=== PATIENT | female | born 1980 | race Caucasian/White ===

== ENCOUNTER 2016-12-19 18:49 | Emergency (ER) | payer MEDICAID ==
[~2016-12-19] VITALS: Ht 147.3 cm; Wt 94.8 kg
[2016-12-19 18:55] VITALS: BP_SYST 110
[2016-12-19 21:34] LABS: BILIRUBIN,URINE NEGATIVE (NEGATIVE); BLOOD, URINE NEGATIVE (NEGATIVE); CLARITY/URINE HAZY (CLEAR); COLOR,URINE YELLOW (YELLOW); GLUCOSE,URINE NEGATIVE (NEGATIVE); KETONES,URINE NEGATIVE (NEGATIVE); LEUKOCYTE ESTERASE ,URINE 1+ (NEGATIVE); NITRITE, URINE NEGATIVE (NEGATIVE); PROTEIN URINE NEGATIVE (NEGATIVE)
[2016-12-19 22:07] LABS: BACTERIA,URINE MANY /HPF (None Seen); MUCUS,URINE None Seen /LPF (None Seen); RBC,URINE 0-3 /HPF (0-3)
[2016-12-19 22:45] VITALS: BP_SYST 114
== END 2016-12-19 22:45 | disposition home or self-care (01) ==
LOC: SED 18:49
DX: N39.0 Urinary tract infection, site not specified (principal)
CPT/HCPCS: 81000-TC; 81025; 87086; 99284

== ENCOUNTER 2021-02-04 03:38 | Emergency (ER) | payer MEDICAID ==
[~2021-02-04] VITALS: Ht 147.3 cm; Wt 83.5 kg
[2021-02-04 04:58] VITALS: BP_SYST 121
[2021-02-04] MEDS ORDERED: ASPIRIN 81 MG TAB.CHEW PO ONE (06:00)
[2021-02-04 07:14] LABS: BASOPHILS % (AUTO) 0.6 % (0.0-2.0); EOSINOPHILS # (AUTO) 0.1 K/uL (0.0-0.4); EOSINOPHILS % (AUTO) 1.3 % (0.0-4.0); HEMATOCRIT 39.1 % (36-48); HEMOGLOBIN 13.2 g/dL (12.0-16.0); LYMPHOCYTES # (AUTO) 1.9 K/uL (1.0-5.5); LYMPHOCYTES % (AUTO) 25.8 % (20.5-51.5); MEAN CORPUSCULAR HEMOGLOBIN 30 pg (27-31); MEAN CORPUSCULAR HGB CONC 34 % (32-36); MEAN CORPUSCULAR VOLUME 87 fL (79.0-98.0); MONOCYTES # (AUTO) 0.4 K/uL (0.0-1.0); MONOCYTES % (AUTO) 5.3 % (1.7-9.3); NEUTROPHILS # (AUTO) 4.8 K/uL (1.8-7.7); PLATELET COUNT (AUTO) 198 K/uL (130-430); RED BLOOD CELL COUNT(AUTO) 4.48 MIL/uL (4.2-6.2); RED CELL DISTRIBUTION WIDTH 13.1 % (9.0-15.0); WHITE BLOOD COUNT (AUTO) 7.2 K/uL (4.8-10.8)
[2021-02-04 08:09] LABS: CALCIUM 8.6 mg/dL (8.4-11.0); CREATININE 0.79 mg/dL (0.55-1.30); POTASSIUM 3.7 mmol/L (3.5-5.1)
[2021-02-04 08:19] LABS: ALBUMIN 3.2 g/dL (3.4-4.8)
[2021-02-04] MEDS ORDERED: IBUP-1969 PO (08:30)
[2021-02-04] MEDS ORDERED: HYDR-3917 PO (08:30)
[2021-02-04 08:50] VITALS: BP_SYST 129
== END 2021-02-04 08:50 | disposition home or self-care (01) ==
LOC: SED 03:38
DX: S43.401A Unspecified sprain of right shoulder joint, initial encounter (principal); X50.9XXA Other and unspecified overexertion or strenuous movements or postures, initial encounter; Y93.89 Activity, other specified; Y92.89 Other specified places as the place of occurrence of the external cause; Y99.8 Other external cause status
CPT/HCPCS: 36415; 71045; 73030; 80053; 81025; 84484; 85025; 93005; 99285